=== PATIENT | male | born 1990 | race Caucasian/White ===

== ENCOUNTER 2018-12-04 20:39 | Emergency (ER) | payer MEDICAID ==
[~2018-12-04] VITALS: Ht 172.7 cm; Wt 78.1 kg
[2018-12-04 20:40] VITALS: BP 142/89
--- NOTE | 2018-12-04 21:01 | NUR ---
PATIENT PRESENTS TO ED WITH c/0 pain to dental abcess. T C AAOX4 WITH EVEN AND STEADY GAIT; LUNGS CLEAR BL; HR EVEN AND REGULAR; PT DENIES ANY FEVER, CP, SOB, OR COUGH AT THIS TIME; PATIENT STATES PAIN OF 8/10 AT THIS TIME; VSS; PATIENT POSITIONED FOR COMFORT; HOB ELEVATED; BEDRAILS UP X2; BED DOWN. ER MD MADE AWARE OF PT STATUS.
--- NOTE | 2018-12-04 21:01 | NUR ---
PT TAKEN TO BED 9
--- NOTE | 2018-12-04 21:22 | NUR ---
DANE FALCON AT BEDSIDE
[2018-12-04] MEDS ORDERED: LIDOCAINE 1% 500 MG/50 ML VIAL INJ SCH (21:35)
[2018-12-04] MEDS ORDERED: HYDROcodone/APAP 5/325 MG 1 TAB TAB PO ONE (21:35)
[2018-12-04] MEDS ORDERED: LIDOCAINE MPF 1% 5mL VIAL ONE (21:51)
[2018-12-04 22:37] VITALS: BP 142/89
== END 2018-12-04 22:37 | disposition home or self-care (01) ==
LOC: MED 20:39
DX: K04.7 Periapical abscess without sinus (principal)
CPT/HCPCS: 99283; J2001